=== PATIENT | female | born 1940 | race Caucasian/White ===

== ENCOUNTER → 2017-12-11 05:48 | Outpatient (CLI) | payer MEDICARE, SELFPAY ==
--- NOTE | 2017-12-11 06:06 | ECHOD_ITS ---
Reason For Study: chest pain Procedure This was a 2D Doppler, Color Flow transthoracic echocardiogram. Exam performed in department. Left Ventricle Normal LV size. Left ventricular systolic function is normal. The estimated ejection fraction is 55 %. Stage 1 diastolic dysfunction. No regional wall motion abnormalities noted. Right Ventricle Normal RV size. Normal systolic function. Atria Normal left atrium. Normal right atrium. Mitral Valve Normal mitral valve. Trivial eccentric mitral valve insufficiency. Tricuspid Valve Normal tricuspid valve. Mild tricuspid valve insufficiency. Aortic Valve Trisinus/trileaflet aortic valve. Pulmonic Valve Normal pulmonic valve. Great Vessels Normal aortic root. The pulmonary artery is normal size. Normal inferior vena cava. Pericardium/Pleural No pericardial effusion. MMode/2D Measurements & Calculations LVIDd: 4.1 cm IVSd: 1.3 cm Ao root diam: 2.8 cm LVIDs: 2.7 cm LVPWd: 0.99 cm LA dimension: 3.8 cm RVDd: 3.3 cm FS: 33.6 % LAV(MOD-bp): 51.2 ml LA A4 area: 18.4 cm2 RA A4 area: 12.6 cm2 LAV(MOD-bp) Indexed: 28.6 ml/m2 LAV(MOD-sp2): 46.0 ml LAV(MOD-sp4): 54.4 ml Doppler Measurements & Calculations MV E max se: 75.0 cm/sec Lat Peak E' Se: 7.3 cm/sec Med Peak E' Se: 6.6 cm/sec MV A max se: 81.5 cm/sec E/E' lat: 10.3 E/E' med: 11.3 MV E/A: 0.92 Ao V2 max: 162.0 cm/sec LV V1 max: 101.7 cm/sec PA V2 max: 111.5 cm/sec Ao max P.6 mmHg LV V1 max P.1 mmHg TR max se: 222.9 cm/sec TR max P.9 mmHg Interpretation Summary Normal LV size. Left ventricular systolic function is normal. The estimated ejection fraction is 55 %. Stage 1 diastolic dysfunction. Mild tricuspid valve insufficiency. Ordering Physician: Esau Cortez Referring Physician: Paul Rios Performed By: Char Hughes, RDCS, RVT
--- NOTE | 2017-12-11 10:59 | STRESSREP ---
Stress Test Report Pharmacologic myocardial perfusion stress test. 77-year-old lady with a history of coronary artery disease. With atypical chest pain. Medications: Metoprolol atorvastatin aspirin. Stress protocol: Resting EKG demonstrates sinus rhythm with a rate of 64 beats minute normal intervals and noted resting blood pressure is 118/78 mmHg. 0.4 mg regadenoson was infused per usual protocol followed by Intravenous saline flush injection continuous EKG monitoring was performed. The maximum heart rate was 100 bpm which is 70% of maximum predicted heart rate maximum workload was 1 metabolic equivalent. At rest were no ST or T-wave changes noted suggest abnormal flow reserve at peak infusion no ST or T-wave changes were noted suggest abnormal flow reserve. The resting blood pressure is 118/78 and stayed flat throughout the stress protocol. Myocardial perfusion protocol. 11.2 mCi of technetium 99m sestamibi was injected at rest. 0.4 mg regadenoson was infused per usual protocol peak infusion 33.6 mCi of technetium 99m sestamibi was injected at rest. 0.4 mg of regadenoson was infused per usual protocol peak infusion. Stress and rest images were reconstructed and compared in the short axis vertical long and horizontal long axis. Gated images were also obtained pre- Perfusion SPECT analysis: Review of the stress images demonstrate normal uptake of tracer noted in all areas of the myocardium. The resting images similarly demonstrate normal uptake of tracer noted in all areas of myocardium. No areas of reversibility are noted suggest ischemia. Gated SPECT analysis: The gated ejection fraction is noted to be 77%. Conclusion: Normal pharmacologic myocardial perfusion stress test. Preserved ejection fraction.
== END ==
PROVIDERS: Family Provider Family Medicine; PCP Family Medicine; Visit Provider Internal Medicine Cardiovascular Disease
DX: I25.10 Atherosclerotic heart disease of native coronary artery without angina pectoris (principal); R07.9 Chest pain, unspecified
CPT/HCPCS: 78452; 93017; 93306; A9500; A4216; J2785

== ENCOUNTER → 2018-05-07 22:16 | Outpatient (CLI) | payer MEDICARE, SELFPAY ==
[2018-05-07 17:09] VITALS: BMI 29.2
[2018-05-07 22:59] LABS: Thyroid Stim Hormone (TSH) 6.01 uIU/mL (0.358-3.74)
== END ==
PROVIDERS: Family Provider Family Medicine; PCP Family Medicine; Referring Provider Nurse Practitioner; Visit Provider Nurse Practitioner
DX: R07.89 Other chest pain (principal)
CPT/HCPCS: 84443